=== PATIENT | female | born 1990 | race African-American/Black ===

== ENCOUNTER 2024-04-10 05:15 | Emergency (ER) | payer MEDICAID ==
[~2024-04-10] VITALS: Ht 162.6 cm; Wt 68.0 kg
[2024-04-10 05:17] VITALS: O2SAT 98
[2024-04-10 07:20] LABS: CHLORIDE 111 mEq/L (98-107); POTASSIUM 3.9 mEq/L (3.5-5.1); SODIUM 142 mEq/L (136-145)
[2024-04-10 07:21] LABS: CARBON DIOXIDE 26 mEq/L (21-32)
[2024-04-10 07:22] LABS: CALCIUM 9.1 mg/dL (8.7-10.4)
[2024-04-10 07:23] LABS: DIFFERENTIAL COMMENT 1; HEMATOCRIT. 31.9 % (36.0-48.0); MEAN CORPUSCULAR HEMOGLOBIN 23.9 pg (28.0-32.0); MEAN CORPUSCULAR HGB CONC 31.4 g/dL (31.0-37.0); MEAN CORPUSCULAR VOLUME 76.3 fL (81.0-99.0); MEAN PLATELET VOLUME 7.1 fl (7.4-10.4); PLATELET 219 x1000/uL (130-400); RED BLOOD CELL COUNT 4.18 mill/uL (4.2-5.4); RED CELL DISTRIBUTION WIDTH 17.3 % (11.6-14.6); WHITE BLOOD COUNT 3.4 x1000/uL (4.5-11.0)
[2024-04-10 07:26] LABS: CREATININE 0.5 mg/dL (0.6-1.0); GLUCOSE 91 mg/dL (70-105); INR 1.1; PROTHROMBIN TIME 12.1 sec (9.6-11.0); UREA NITROGEN BLOOD 11 mg/dL (9-23)
[2024-04-10 10:02] LABS: ANISOCYTOSIS 1+; MICROCYTOSIS 1+; OVALOCYTES 1+; PLATELET ESTIMATE NORMAL
[2024-04-10] MEDS: OXYCODONE HCL/ACETAMINOPHEN 5/325MG TABLET PO ONE (10:46)
[2024-04-10] MEDS: ACETAMINOPHEN 325MG TABLET PO ONE (12:09)
[2024-04-10] MEDS: MAGNESIUM/ALUMINUM HYDROXIDE/SIMETHICONE 30ML UDC PO ONE (12:09)
[2024-04-10] MEDS: PANTOPRAZOLE 40MG DR TABLET PO ONE (12:09)
[2024-04-10] MEDS: SODIUM CHLORIDE 0.9% 1,000 ML IV ONE (15:19)
[2024-04-10 17:30] VITALS: BP 118/73; PULSE 85; RESP 17; TEMP 36.72516; O2SAT 98
== END 2024-04-10 21:10 | disposition left against medical advice (07) ==
LOC: ER 05:23 → EDBEDREQTM 15:01 → EDBEDREQ 15:01 → CANBEDREQ 21:10 → ER 21:10
DX: K62.5 Hemorrhage of anus and rectum (principal); R10.13 Epigastric pain; I48.91 Unspecified atrial fibrillation; I50.9 Heart failure, unspecified; Z88.5 Allergy status to narcotic agent; Z90.49 Acquired absence of other specified parts of digestive tract; Z86.73 Personal history of transient ischemic attack (TIA), and cerebral infarction without residual deficits
CPT/HCPCS: 99285; 74176; 96360; 82270; 80048; 83605; 83690; 85025; 85610; 86850; 86900; 86901; 36415; J7030

== ENCOUNTER 2024-08-21 03:44 | Emergency (ER) | payer MEDICAID ==
[~2024-08-21] VITALS: Ht 167.6 cm; Wt 75.0 kg
[~2024-08-21 03:44] MED LIST: APIX5TAB PO; BUME2TAB7; FURO-152 MT; FURO-152 PO; METH-371; MIDO10TA3; POTA-204; SPIR25TA6 PO
[2024-08-21 03:49] VITALS: BP 108/68; PULSE 98; RESP 20; TEMP 36.7; O2SAT 99
== END 2024-08-21 05:39 | disposition left against medical advice (07) ==
LOC: ER 03:44
DX: D57.00 Hb-SS disease with crisis, unspecified (principal); Z53.21 Procedure and treatment not carried out due to patient leaving prior to being seen by health care provider
CPT/HCPCS: 71045

== ENCOUNTER 2024-10-21 18:15 | Emergency (ER) | payer BC, MEDICAID ==
[~2024-10-21] VITALS: Ht 157.5 cm; Wt 63.5 kg
[~2024-10-21 18:15] MED LIST changes: +ATOR20TA MT; +DIPH25CA83 MT; +HYDR4TAB4 MT; +METO25TA6 MT
[2024-10-21 18:37] VITALS: O2SAT 100
[2024-10-21 20:20] LABS: BASOPHILS % 1.8 % (0.0-2.0); EOSINOPHILS % 1.6 % (0.0-5.0); HEMATOCRIT. 32.8 % (36.0-48.0); HEMOGLOBIN. 10.2 g/dL (12.0-16.0); LYMPHOCYTES % 20.9 % (20.0-50.0); MEAN CORPUSCULAR HEMOGLOBIN 22.3 pg (28.0-32.0); MEAN CORPUSCULAR VOLUME 71.8 fL (81.0-99.0); MEAN PLATELET VOLUME 8.8 fl (7.4-10.4); MONOCYTES % 9.9 % (2.0-8.0); NEUTROPHILS % 65.8 % (40.0-76.0); PLATELET 218 x1000/uL (130-400); RED BLOOD CELL COUNT 4.56 mill/uL (4.2-5.4); WHITE BLOOD COUNT 4.4 x1000/uL (4.5-11.0)
[2024-10-21 20:22] LABS: CHLORIDE 101 mEq/L (98-107); POTASSIUM 4.6 mEq/L (3.5-5.1); SODIUM 131 mEq/L (136-145)
[2024-10-21 20:23] LABS: ADD RBC MORPHOLOGY YES; CARBON DIOXIDE 20 mEq/L (21-32); DIFFERENTIAL COMMENT 1
[2024-10-21 20:24] LABS: CALCIUM 9.7 mg/dL (8.7-10.4)
[2024-10-21 20:28] LABS: CREATININE 1.1 mg/dL (0.6-1.0); GLUCOSE 94 mg/dL (70-105); UREA NITROGEN BLOOD 17 mg/dL (9-23)
[2024-10-21 20:43] LABS: ANISOCYTOSIS 2+; HYPOCHROMASIA 1+; MICROCYTOSIS 2+; OVALOCYTES 1+; PLATELET ESTIMATE NORMAL
[2024-10-21 20:44] LABS: TEAR DROP CELLS 1+
[2024-10-21] MEDS: HYDROMORPHONE HCL/PF 2MG/ML INJ IV ONE (21:23)
[2024-10-21] MEDS: SODIUM CHLORIDE 0.9% 1,000 ML IV ONE (21:24)
[2024-10-21] MEDS: ACETAMINOPHEN 1000MG/100ML 100 ML IV ONE (21:24)
[2024-10-21 23:38] VITALS: BP 110/89; PULSE 90; RESP 14; TEMP 36.8; O2SAT 100
== END 2024-10-21 23:42 | disposition home or self-care (01) ==
LOC: ER 18:15
DX: M79.10 Myalgia, unspecified site (principal); R53.1 Weakness; F17.200 Nicotine dependence, unspecified, uncomplicated; D57.1 Sickle-cell disease without crisis; Z98.890 Other specified postprocedural states; Z79.899 Other long term (current) drug therapy; Z95.810 Presence of automatic (implantable) cardiac defibrillator; Z88.5 Allergy status to narcotic agent
CPT/HCPCS: 99285; 96365; 71045; 96375; 80048; 85025; 85044; 86850; 86900; 86901; 36415; 93005; J1171; J7030; J0131